=== PATIENT | female | born 1995 | race African-American/Black ===

== ENCOUNTER 2019-04-22 15:35 | Emergency (ER) | payer MEDICAID, OTHER ==
[~2019-04-22] VITALS: Ht 160 cm; Wt 54.4 kg
[~2019-04-22 15:35] MED LIST: IBUPROFEN400 MG ORAL; NITROFURANTOIN100 M2 ORAL
[2019-04-22 16:30] VITALS: BP 126/86
--- NOTE | 2019-04-22 16:30 | NUR ---
ED Nurse Note: Patient walked in to ER c/o high blood sugar and need for insulin. As per patient, she is not taking any medication for her blood sugar. Denies any pain. No SOB. Breathing even and unlabored. Afebrile. VSS.
--- NOTE | 2019-04-22 16:45 | NUR ---
ED Nurse Note: ERMD at bedside.
[2019-04-22 17:36] LABS: APPEARANCE,URINE CLOUDY; BILIRUBIN, URINE NEGATIVE (NEGATIVE); GLUCOSE, URINE (UA) 4+ (NEGATIVE); KETONES,URINE 3+ (NEGATIVE); LEUKOCYTE ESTERASE ,URINE NEGATIVE (NEGATIVE); NITRITE,URINE POSITIVE (NEGATIVE); PH,URINE 6 (4.5-8.0); PROTEIN,URINE NEGATIVE (NEGATIVE); UROBILINOGEN,URINE 4 MG/DL (0.0-1.0)
[2019-04-22 17:39] LABS: COLOR,URINE YELLOW
--- NOTE | 2019-04-22 17:39 | Emergency Room Report ---
History of Present Illness General Chief Complaint: General Complaint Source: Patient Present Illness HPI 23 YO Female presents to the ED C/o polydipsia and polyuria x 1 week. Pt. denies dysuria, hematuria or urgency. Pt. reports hx of DM in the past. Pt. self d/c'd insulin at the age of 15 as it was frequently dropping her too low. Pt. had gestational DM and her OBGYN told her she was misdiagnosed with DM type 1, and told her she is DM type 2. Pt. wants evaluation for hyperglycemia and medication management until she can be seen by PCP. pt. reports moved and switched insurances from [facility]. Pt. denies . She denies abdominal pain, low back pain/flank pain. Denies AMS, MAGAÑA, dizziness, N/V or syncope. She denies pain at this time. She reports that she felt slightly light headed this morning with out syncope/LOC. Pt. requesting oral regimen if necessary for hyperglycemia over insulin. Allergies: Coded Allergies: No Known Allergies (Unverified , 11/15/15) Patient History Past Medical History: see triage record, DM Past Surgical History: none Pertinent Family History: none Last Menstrual Period: Now: No Reviewed Nursing Documentation: PMH: Agreed; PSxH: Agreed Nursing Documentation-PMH Past Medical History: No History, Except For Hx Diabetes: Yes Review of Systems All Other Systems: negative except mentioned in HPI Physical Exam Vital Signs Date Time Temp Pulse Resp B/P (MAP) Pulse Ox O2 Delivery O2 Flow Rate FiO2 04/22/19 16:15 97.7 93 18 126/86 (99) 97 Room Air Sp02 EP Interpretation: reviewed, normal General Appearance: no apparent distress, alert, GCS 15, non-toxic Head: normocephalic, atraumatic Eyes: bilateral eye normal inspection, bilateral eye PERRL ENT: hearing grossly normal, normal voice Neck: full range of motion Respiratory: lungs clear, normal breath sounds, speaking full sentences Cardiovascular #1: regular rate, rhythm Gastrointestinal: normal bowel sounds, non tender, soft, non-distended, no guarding Genitourinary: normal inspection, no CVA tenderness Musculoskeletal: normal range of motion, gait/station normal, non-tender Neurologic: alert, motor strength/tone normal, oriented x3, sensory intact, responsive, speech normal Psychiatric: judgement/insight normal Skin: normal color, warm/dry Medical Decision Making PA Attestation Dr. Campos is my supervising Physician whom patient management has been discussed with. Diagnostic Impression: Primary Impression: Hyperglycemia Additional Impression: UTI (urinary tract infection) Qualified Codes: N30.01 - Acute cystitis with hematuria ER Course 23 YO Female presents to the ED C/o polydipsia and polyuria x 1 week. Pt. denies dysuria, hematuria or urgency. Pt. reports hx of DM in the past. Pt. self d/c'd insulin at the age of 15 as it was frequently dropping her too low. Pt. had gestational DM and her OBGYN told her she was misdiagnosed with DM type 1, and told her she is DM type 2. Pt. wants evaluation for hyperglycemia and medication management until she can be seen by PCP. pt. reports moved and switched insurances from [facility]. Pt. denies . She denies abdominal pain, low back pain/flank pain. Denies AMS, MAGAÑA, dizziness, N/V or syncope. She denies pain at this time. She reports that she felt slightly light headed this morning with out syncope/LOC. Pt. requesting oral regimen if necessary for hyperglycemia over insulin. Ddx considered but are not limited to UTi , Pyelo, STI, Stone, Cystitis, hyperglycemia, DKA, HONK Vital signs: are WNL, pt. is afebrile, Normal respiratory rate. no Kussmaul H&PE are most consistent with UTI and possible hyperglycemia/ return of type 2 DM. PT. NAD, non-toxic in appearance. ORDERS: - Accucheck: 283 - UA labs are attached - Nitrite positive c/w UTI ED INTERVENTIONS: None required at this time. d/w pt. starting Metformin, given a small qty, and resources to primary health clinics in the area for f/u and further management. Pt. given strict ED return precautions for any worsening in her current symptoms or if she develops new symptoms. DISCHARGE: At this time pt. is stable for d/c to home. Will provide printed patient care instructions, and any necessary prescriptions. Care plan and follow up instructions have been discussed with the patient prior to discharge. Labs Test 04/22/19 16:55 Urine Color Yellow Urine Appearance Cloudy Urine pH 6 (4.5-8.0) Urine Specific [place] 1.015 (1.005-1.035) Urine Protein Negative (NEGATIVE) Urine Glucose (UA) 4+ (NEGATIVE) Urine Ketones 3+ (NEGATIVE) Urine Blood Negative (NEGATIVE) Urine Nitrite Positive (NEGATIVE) Urine Bilirubin Negative (NEGATIVE) Urine Urobilinogen 4 MG/DL (0.0-1.0) Urine Leukocyte Esterase Negative (NEGATIVE) Urine RBC 0-2 /HPF (0 - 2) Urine WBC 10-15 /HPF (0 - 2) Urine Squamous Epithelial Cells Many /LPF (NONE/OCC) Urine Bacteria Many /HPF (NONE) Urine HCG, Qualitative Negative (NEGATIVE) Last Vital Signs Date Time Temp Pulse Resp B/P (MAP) Pulse Ox O2 Delivery O2 Flow Rate FiO2 04/22/19 16:30 93 18 Room Air 04/22/19 16:30 97.7 126/86 97 Disposition: HOME, SELF-CARE Condition: Stable Scripts Nitrofurantoin Monohyd/M-Cryst* (MACROBID 100 MG*) 100 Mg Capsule 100 MG ORAL EVERY 12 HOURS for 7 Days, #14 CAP Prov: Mague Rivera 04/22/19 Metformin Hcl* (METFORMIN HCL*) 500 Mg Tablet 500 MG ORAL TWICE A DAY for 14 Days, #28 TAB Prov: Mague Rivera 04/22/19 Referrals: CARLOS COLONN,REFERRI (PCP) Patient Instructions: Metformin oral solution Additional Instructions: Take medications as directed. Follow up with a Primary Care Provider in 3-5 days, even if your symptoms have resolved. --Please review list of primary care clinics, if you do not already have a primary care provider Return sooner to ED if new symptoms occur, or current symptoms become worse. - Please note that this Emergency Department Report was dictated using [employer] automatic technology software, occasionally this can lead to erroneous entry secondary to interpretation by the dictation equipment. Mague Rivera Apr 22, 2019 17:39
[2019-04-22] MEDS ORDERED: METFORMIN HCL500 M1 ORAL (18:15)
[2019-04-22] MEDS ORDERED: NITROFURANTOIN100 M2 ORAL (18:15)
[2019-04-22 18:29] VITALS: BP 126/86
--- NOTE | 2019-04-22 18:29 | NUR ---
ED Nurse Note: Pt cleared by ERMD for discharge. DC instructions/prescription was given and explained to pt and verbalized understanding of teachings. All medical deviecs such as ID band removed. Pt is AAO x4, ambulatory and left with all personal belongings.
== END 2019-04-22 18:54 | disposition home or self-care (01) ==
LOC: EMR 17:21
DX: N30.01 Acute cystitis with hematuria (principal); E11.65 Type 2 diabetes mellitus with hyperglycemia
CPT/HCPCS: 81003; 81025; 87086; 87181; Z7502; 99283